=== PATIENT | male | born 1990 | race African-American/Black ===

== ENCOUNTER 2020-07-19 19:06 | Inpatient (IN) | payer BC ==
[~2020-07-19] VITALS: Ht 177.8 cm; Wt 104.3 kg
== END 2020-07-19 23:00 | disposition left against medical advice (07) | DRG 203 ==
LOC: ER 19:06 → SEC-K 22:31
PROVIDERS: ADMIT Internal Medicine; ATTEND Internal Medicine
DX: J45.901 Unspecified asthma with (acute) exacerbation (principal); I10 Essential (primary) hypertension